=== PATIENT | female | born 1985 | race Caucasian/White ===

== ENCOUNTER 2017-01-16 07:16 | Inpatient (IN) | payer BC ==
[~2017-01-16] VITALS: Ht 170.2 cm; Wt 78.1 kg
[~2017-01-16 07:16] MED LIST: ACET-2321 PO; ALBU8.5H INH; CETI-115 PO; DIPH25CA84 PO; FLUT100D2 ORAL INH; MONT10TA22 PO
--- OUTSIDE RECORDS SUMMARY | 2017-01-21 06:08 | XMS REPORT | Continuity of Care Document ---
Author Author [facility] Organization [facility] Address Unknown Phone Unavailable Support Name Relationship Address Phone JACOBDEBOEILEEN APRN Caregiver [address] [place] [id number] Unavailable MIKE OROZCO MD Caregiver [address] [place] [address] Unavailable MAN CANALES MD Caregiver [address] [place] [address] [address] [place] [address] Unavailable EVELIA REYES Next Of Kin [address] [place] [address] Insurance Providers Guarantor Juan PabloDorothy Address [address] [place] [address] Payer [facility] Policy Number [id number] Subscriber's Name Dorothy Reyes Relationship 18 Self Group Number [id number] Chief Complaint and Reason for Visit Chief Complaint Cough,Fever,Flu,URI Reason for Visit [id number] Problems Past Problems Medical Problem Onset Date Influenza A Unknown Medications Current Home Medications Medication Dose Units Route Directions Days Qty Instructions Start Date Acetaminophen (Tylenol) 325 Mg Tablet 1-2 Tab Oral Four Times Daily 60 Tablet 12/16/16 Albuterol Sulfate (Proair Hfa 90 Mcg/Actuation) 8.5 Gm Hfa.aer.ad 2 Puff Inhalation Every 4 Hours 12/16/16 Cetirizine Hcl (Zyrtec) 10 Mg Tablet 1 Tab Oral Daily 12/16/16 Diphenhydramine Hcl (Benadryl) 25 Mg Capsule 1 Cap Oral Bedtime 30 Capsule 12/16/16 Fluticasone Propionate (Flovent Diskus) 100 Mcg Blst.w.dev 1 Puff Oral Inhalation Twice A Day 12/16/16 Montelukast Sodium (Singulair) 10 Mg Tablet 10 Mg Oral Bedtime Take 1 tablet, by mouth, one time a day (at bedtime). 12/16/16 Oseltamivir Phosphate (Tamiflu) 75 Mg Capsule 75 Mg Oral Twice A Day 5 Days 10 Capsule Take one capsules, by mouth, two times a day. Supervising physician Dr. Benjamin Hollingsworth Stenographer [facility] [address] [phone] 12/16/16 Social History No social history. Hospital Discharge Instructions No hospital discharge instructions. Plan of Care Discharge Date 12/16/16 5:19pm Disposition 01 DISCHARGED HOME, SELF-CARE Condition at Discharge Stable Instructions/Education Provided Influenza (ED) Prescriptions See Medication Section Referrals MIKE OROZCO MD Address: [facility] [address] [id number] Additional Instructions/Education Take Tamiflu as directed. Follow with Dr. Canales in the morning. Take Tylenol as needed for fevers. If any worsening symptoms go to the emergency department. Functional Status No functional status results. Allergies, Adverse Reactions, Alerts No known allergies. Immunizations Query Response on File Recorded Date/Time DTaP Vaccine History 11/201612/16/16 4:02pm Influenza Vaccine Hx 07/201612/16/16 4:02pm Vital Signs Acute Vital Signs Vital Response Date/Time Temperature (Fahrenheit) 100.6 deg F (96.8 - 99.1) 12/16/2016 4:29pm Temperature (Calculated Celsius) 38.22487 degrees C (36.0 - 37.3) 12/16/2016 4:29pm Pulse Rate (adult) 125 bpm (60 - 100) 12/16/2016 4:29pm Respiratory Rate 18 breaths/min (10 - 20) 12/16/2016 4:29pm O2 Sat by Pulse Oximetry 98 % (90 - 100) 12/16/2016 4:29pm Blood Pressure 86/57 mm Hg 12/16/2016 4:29pm Height (Inches) 66.10 inches 12/16/2016 4:29pm Weight (Kilograms) 77.900 kg 12/16/2016 4:29pm Body Mass Index (BMI) 27.0 12/16/2016 4:29pm Results Laboratory Results Test Name Result Units Flags Reference Collection Date/Time Result Date/ Time Comments Influenza Type A Antigen POSITIVE H NEGATIVE 12/16/2016 4:36pm 2016 5:15pm If clinical symptoms do not support these results, consider ordering the "Respiratory Panel, PCR". Influenza Type B Antigen NEGATIVE NEGATIVE 12/16/2016 4:36pm 2016 5:15pm Negative for Flu B protein antigen. Assay sensitivity is 90%. Procedures No known history of procedures. Encounters Encounter Location Arrival/Admit Date Discharge/Depart Date Attending Provider Departed Emergency Room [facility] 12/16/16 3:43pm 12/16/16 5: 19pm EILEEN KHAN BOROUGH COORDINATOR Recent Diagnosis
[2017-01-21] MEDS ORDERED: LIDOCAINE 1% (10mg/ml) 2ml SDV ID PRN (06:15)
[2017-01-21] MEDS ORDERED: OXYTOCIN 30 UNIT in D5LR 500 ML PRN (06:15)
[2017-01-21] MEDS ORDERED: MAG-AL + SIM LIQUID 30 ML UDC PO PRN (06:15)
[2017-01-21] MEDS ORDERED: CALCIUM CARBONATE 500mg Chewable TAB PO PRN ×2 (06:15→15:30)
[2017-01-21] MEDS ORDERED: ACETAMINOPHEN 500 MG TABLET PO PRN ×2 (06:15→15:30)
[2017-01-21] MEDS: LR 1,000 ML IV PRN ×2 (06:35→10:19)
[2017-01-21 06:41] LABS: HCT - HEMATOCRIT 38.3 % (36-46); HGB - HEMOGLOBIN 12.5 GM/DL (12-16); MEAN CORPUSCULAR HGB 28.2 UUG (26-34); MEAN CORPUSCULAR HGB CONC(MCHC 32.6 GM/DL (31-37); MEAN CORPUSCULAR VOLUME 86.5 UM3 (80-100); MEAN PLATELET VOLUME 10.5 UM3 (9.4-12.4); RED BLOOD COUNT 4.43 M/MM3 (4.00-5.20); WBC - WHITE BLOOD COUNT 8.5 T/MM3 (4.5-11.0)
[2017-01-21 06:53] VITALS: BP 106/56; PULSE 68; RESP 18; TEMP 98.2; O2SAT 97
[2017-01-21] MEDS ORDERED: D5LR 1,000 ML IV PRN (07:00)
[2017-01-21] MEDS ORDERED: AMPICILLIN 2 G in NORMAL SALINE 100 ML IV ONE (07:00)
--- NOTE | 2017-01-21 09:23 | ANESOB ---
Epidural/ Date/Time DATE: 01/21/17 TIME: 09:18 Preop Diagnosis Procedure: Labor Epidural Plan: Epidural Height: 5 ' 7.00 " Weight: 78.100 kg BMI: kg/m2 Temperature: 98 Blood Pressure: 101/67 Heart Rate: 68 Respiratory Rate: 12 SaO2: 98 NPO since: 529, eggs P:1, 40+5 Heart Rate: 130 Medications & Allergies Inpatient Medications Current Medications Medications (Trade) Dose Ordered Sig/Marci Start Time Stop Time Status Last Admin Dose Admin Lidocaine HCl 0.2 mg 0.2 mg PRN PRN 01/21/17 06:15 Lactated Ringer's (Lactated Ringers) 1,000 ml @ 0 mls/hr Q0M PRN 01/21/17 06:11 01/21/17 06:35 0 MLS/HR Acetaminophen (Tylenol Extra Strength) 1-2 TABS = 500-1,000 MG Q4H PRN 01/21/17 06:15 Al Hydroxide/Mg Hydroxide (Maalox) 30 ml Q4H PRN 01/21/17 06:15 Calcium Carbonate 1-2 TABS Q2H PRN 01/21/17 06:15 Ampicillin Sodium 1 g/Sodium Chloride 100 ml @ 200 mls/hr Q4H 01/21/17 11:00 Dextrose/Lactated Ringer's 1,000 ml @ 0 mls/hr Q0M PRN 01/21/17 07:00 01/21/17 07:01 0 MLS/HR Oxytocin/Dextrose/ Lactated Ringer's (Pitocin/D5lr) 503 ml @ 0 mls/hr Q0M PRN 01/21/17 06:15 01/21/17 07:01 0 MLS/HR Acetaminophen (Tylenol) 325 Mg Tablet, 1-2 TAB PO QID, (Reported) Last Taken: on 01/20/172099 Albuterol Sulfate (Proair HFA 90 mcg/actuation ) 8.5 Gm Hfa.aer.ad, 2 PUFF INH Q4H, (Reported) Last Taken: on 01/20/172099 Diphenhydramine HCl (Benadryl) 25 Mg Capsule, 1 CAP PO HS, (Reported) Last Taken: on 01/20/17 2330 Montelukast Sodium (Singulair) 10 Mg Tablet, 10 MG PO HS, (Reported) Take 1 tablet, by mouth, one time a day (at bedtime). Last Taken: on 01/20/17 2100 Discontinued Medications Cetirizine HCl (Zyrtec) 10 Mg Tablet, 1 TAB PO DAILY, (Reported) Fluticasone Propionate (Flovent Diskus) 100 Mcg Blst.w.dev, 1 PUFF ORAL INH BID, (Reported) Coded Allergies: No Known Allergies (Unverified , 01/21/17) Medical/Surgical History Unable to Obtain Due To: Intoxication (uses inhaler once daily, ) Anesthesia PMH: Reports: Asthma, Headaches (occasional ), Denies: *Diabetes, Anesthesia Reactions, Malignant Hyperthermia Smoking Status: Never smoker Does patient use chewing tobac: No Second Hand Exposure: No Substance Use Type: does not use Alcohol Intake: none Anesthesia Adverse Reactions: FOUND none Family Hx of Anesthesia Advers: none Patient's Surgical History: rhinoplasty Pertinent Findings Laboratory Tests 01/21/17 06:29 EKG Rhythm: Sinus Rhythm Physical Exam Respiratory: Bilat breath sounds equal, Lungs clear Cardiovascular: Rub Airway Assessment Mallampati Score: I TMD: 2 Fingerbreadths Neck Extension: Good Overall Assessment: No Airway Concerns ASA: 2 Discussion Discussed risks/options/alternatives of anesthesia. Patient consents. Nursing pain assessment noted. Attestation Statement Prior to the delivery of any anesthetic medication, I examined the patient, developed the plan, obtained the patient's consent and discussed the risk and benefits of the procedure with the patient/guardian. If the note happens to be signed after anesthesia start time, it is only due to providing efficient care of the patient and documenting at a time when the computer is available. JEANCARLOS POLANCO CRNA Jan 21, 2017 09:22
[2017-01-21] MEDS ORDERED: AMPICILLIN 1 G in NORMAL SALINE 100 ML IV SCH (11:00)
[2017-01-21] MEDS ORDERED: FAMOTIDINE 20mg IVPB 50 ML IV SCH (14:15)
[2017-01-21] MEDS ORDERED: CITRIC ACID/SODIUM CITRATE 30 ML PO ONE (14:15)
[2017-01-21] MEDS ORDERED: CEFAZOLIN 2 GM in D5W 50ml 2 GM in D5W 50 ML IV ONE ×2 (14:15)
[2017-01-21] MEDS ORDERED: MORPHINE SULFATE PF 5mg/10ml VL (DURAMORPH) ONE (14:24)
[2017-01-21] MEDS ORDERED: FENTANYL 100mcg/2ml INJECTION ONE (14:25)
[2017-01-21] MEDS ORDERED: SALINE FLUSH 10ml SYRINGE ONE (14:46)
[2017-01-21] MEDS ORDERED: OXYTOCIN 30 UNIT in D5LR 500 ML IV SCH (15:22)
[2017-01-21] MEDS ORDERED: HYDROCORTISONE 2.5% CREAM 30 GM RECTALLY PRN (15:30)
[2017-01-21] MEDS ORDERED: DiphenhydrAMINE 25 MG CAPSULE PO PRN (15:30)
[2017-01-21] MEDS ORDERED: MILK OF MAGNESIA 30 ML SUSP PO PRN (15:30)
[2017-01-21] MEDS ORDERED: NALOXONE 0.4mg/ml INJECTION IV PRN (15:45)
[2017-01-21] MEDS ORDERED: NALBUPHINE 10mg/ml INJECTION IV PRN (15:45)
[2017-01-21] MEDS ORDERED: DiphenhydrAMINE 50 MG/ML INJECTION IV PRN (15:45)
[2017-01-21] MEDS ORDERED: ONDANSETRON 4mg/2ml INJECTION IV PRN (15:45)
[2017-01-21] MEDS: IBUPROFEN 800 MG TABLET PO SCH ×2 (16:52→23:57)
[2017-01-21] MEDS: D5LR 1,000 ML IV SCH (16:54)
[2017-01-21] MEDS: HYDROCODONE/APAP 5 mg/325 mg TABLET PO PRN ×2 (17:22→23:57)
[2017-01-21] MEDS: SIMETHICONE 80 MG CHEWABLE TABLET PO CHEW SCH ×2 (18:30→23:57)
[2017-01-21 19:39] VITALS: BP 98/54; PULSE 67; RESP 16; TEMP 97.9; O2SAT 98
[2017-01-21 22:30] VITALS: RESP 16; O2SAT 95
[2017-01-21 23:34] VITALS: BP 94/53; PULSE 63; RESP 16; TEMP 97.9; O2SAT 98
--- NOTE | 2017-01-21 23:50 | NUR ---
status patient stood at bedside, felipa care performed, bed changed. patient denied dizziness or lightheadedness. patient reported pain with movement. will administer PO pain medication. fundus firm, lochia scant. patient denies other needs or complaints. will continue to monitor and educate.
[2017-01-22] VITALS (8 sets, daily range): BP systolic 98–105; BP diastolic 51–59; PULSE 63–92; RESP 16–18; TEMP 97.8–98.2; O2SAT 96–98
--- NOTE | 2017-01-22 00:43 | NUR ---
Chart Check 24 hour chart check completed
[2017-01-22] MEDS: D5LR 1,000 ML IV SCH ×3 (01:22→21:22)
--- NOTE | 2017-01-22 02:28 | NUR ---
shift summary VSS, fundus firm, lochia scant. patient stood at bedside for pericare and bed change. D5LR continues to run at 100ml/hr. patient tolerating PO fluids and clear liquid diet without n/v. patient performing cares for infant and well. no further changes in status. will continue to monitor and educate.
[2017-01-22] MEDS: HYDROCODONE/APAP 5 mg/325 mg TABLET PO PRN ×5 (04:07→22:22)
[2017-01-22 06:00] LABS: HCT - HEMATOCRIT 33.4 % (36-46); HGB - HEMOGLOBIN 11.1 GM/DL (12-16); MEAN CORPUSCULAR HGB 28.8 UUG (26-34); MEAN CORPUSCULAR HGB CONC(MCHC 33.2 GM/DL (31-37); MEAN CORPUSCULAR VOLUME 86.8 UM3 (80-100); MEAN PLATELET VOLUME 10.4 UM3 (9.4-12.4); RED BLOOD COUNT 3.85 M/MM3 (4.00-5.20); WBC - WHITE BLOOD COUNT 12.6 T/MM3 (4.5-11.0)
--- NOTE | 2017-01-22 07:24 | OPNOTEF ---
DATE OF PROCEDURE 01/21/2017 Ms. Almeida was brought in for induction of labor today for postdates . In the office and on examination here I felt the baby was in vertex presentation although it did feel like it might be face presentation. I did make sure that I confirmed our suture lines as the induction was going along. heart tones remained reactive and reassuring. The patient dilated to about 2.5 cm and then the baby's presentation felt quite different. Bedside sonogram by me confirmed the baby was in breech presentation. I don't know if he had been this way all along and I simply missed it or if he turned during the course of labor after AROM. However, I talked with Ms. Almeida and her , Joe, about this and recommended that we moved toward . We discussed the reasons for this, the potential risks of versus vaginal delivery. She agreed. PREOPERATIVE DIAGNOSIS Term , labor, breech presentation. POSTOPERATIVE DIAGNOSIS Term , labor, breech presentation. PROCEDURE Primary low transverse section. SURGEON Arlene Canales MD COUPLES THERAPIST Bridgett Ramos MD ANESTHESIA Combo spinal-epidural - Lincoln Meza, CIRCUS TRAINER EBL 900 ml DESCRIPTION OF PROCEDURE Ms. Almeida was brought to the OR and given regional analgesia to good effect. She was then placed on the OR table in a comfortable supine position with left lateral displacement and a Astudillo catheter was placed to dependent drain. The abdomen was prepped and draped in the usual sterile fashion. A Pfannenstiel skin incision was made with a sharp knife. This was carried down to fascia. Fascia was incised transversely. Fascia was then bluntly and sharply dissected free of the rectus muscles while tenting it up. The peritoneum was then tented up, sharply entered, then extended vertically. The bladder blade was inserted. The vesicouterine fold of peritoneum and bladder were noted to be well below the area of operation. A low transverse uterine incision was made with a sharp knife. This was extended bluntly with fingertips. There was clear amniotic fluid. Upon entry of the sac, baby was delivered in the jaz breech presentation without difficulty. Baby was then bulb suctioned on the abdomen. Cord was doubly clamped and cut and the baby was given to Dr. Huerta and his team for care. This was a liveborn male with Apgars of 8/9/9, weighing 8 pounds, 5.9 ounces. The placenta was then expressed intact. It had a normal configuration and a normal-appearing three-vessel cord. The uterine cavity was swept clear of membranes and the uterus exteriorized. The myometrial incision was then reapproximated with a running locking O Monocryl. We inspected carefully for hemostasis. This was under good control. Uterus, tubes and ovaries were noted to be grossly normal. We removed the blood from the abdominal cavity, then returned the uterus to the abdomen. We reinspected for hemostasis at our incision. It was hemostatic. We reapproximated peritoneum with a running nonlocking 2-0 Vicryl. We reapproximated fascia with a running nonlocking 0 Vicryl. Skin edges were then reapproximated with a subcuticular style 3-0 undyed Vicryl. The wound was dressed with Steri-Strips and sterile dressing. Counts correct were correct postoperatively x 2. The urine remained clear and free flowing throughout the procedure. Ms. Almeida was then transferred to recovery in stable condition. SANTANA
[2017-01-22] MEDS ORDERED: RHO(D) IMMUNE GLOBULIN 300mcg/2ml INJECTION IV ONE (07:45)
--- NOTE | 2017-01-22 08:09 | PNPDOC ---
Progress Note PPD1 Rubella: Immune GBS: Positive Blood Type:O neg Subjective 01/22/17 Lochia: Moderate Pain: Controlled Voiding: Astudillo still in Place Nausea and Vomiting: No Nausea/Vomiting Objective VSS AF Vital Signs Date Time Temp Pulse Resp B/P Pulse Ox O2 Delivery O2 Flow Rate FiO2 01/22/17 07:44 98.2 64 16 98/56 96 Room Air General: Alert and Oriented Respiratory: Non-labored Abdomen: Fundus Firm Incision: Clean/Dry/Intact Extremities: Non-tender Edema: None Laboratory Item Value Date Time White Blood Count 12.6 T/MM3 H # 01/22/17 0552 Hemoglobin 11.1 GM/DL L # 01/22/1752 Platelet Count 207 T/MM3 01/22/17 0552 Assessment Primary C/S Plan Routine Care JULIAN MCDONALD APRN Jan 22, 2017 08:09
[2017-01-22] MEDS: IBUPROFEN 800 MG TABLET PO SCH ×2 (08:10→16:08)
[2017-01-22] MEDS: SIMETHICONE 80 MG CHEWABLE TABLET PO CHEW SCH ×4 (10:01→22:22)
[2017-01-22] MEDS: DOCUSATE CALCIUM 240 MG CAPSULE PO SCH (10:01)
--- NOTE | 2017-01-22 14:19 | NUR ---
Shift Summary: VSS, mother's bleeding is minimum. She has been up to the bathroom with assistance and performed own felipa-care. Astudillo catheter was removed at 1400. Dressing is dry and intact. Pain is controlled with oral pain meds. She is eating a regular diet and no nausea. is going well. Mother/ bonding is going well.
--- NOTE | 2017-01-22 15:22 | NUR ---
Rh FACTOR CONSULT: Mother Blood Type = O Negative Child Blood Type = O Positive Hgb / Adult Ratio = 0.000 Will give Rho D Immunoglobulin 300mcg IV x 1 dose. Thank you, Hanny Simmons RPh
[2017-01-23] VITALS: BP 108/58; PULSE 69; RESP 18; TEMP 98
[2017-01-23] MEDS: IBUPROFEN 800 MG TABLET PO SCH ×2 (00:37→15:38)
--- NOTE | 2017-01-23 02:07 | NUR ---
Chart Check 24 hour chart check completed
--- NOTE | 2017-01-23 02:11 | NUR ---
SHIFT SUMMARY: VSS, pt's pain controlled with PO Motrin and [place] 5. Fundus firm at 2 below umbilicus, scant lochia noted. Incision dressing dry and intact. Abdm binder in use for support and pt comfort. Pt up to BRP, RN discusses and encourages pt to increase ambulation. RN discusses showering and removing dressing, pt has not showered. General diet tolerated. well, no assistance needed from RN. Bonding and caring for baby appropriately. in room and supportive. Baby in nursery to allow parents to sleep
[2017-01-23 03:24] VITALS: BP 103/67; PULSE 77; RESP 16; TEMP 97.8
[2017-01-23] MEDS: HYDROCODONE/APAP 5 mg/325 mg TABLET PO PRN ×3 (03:28→12:40)
--- NOTE | 2017-01-23 08:16 | PNPDOC ---
Progress Note PPD2 Rubella: Immune GBS: Positive Blood Type:O neg Subjective 01/23/17 Lochia: Minimal Pain: Controlled Voiding: Voiding Nausea and Vomiting: No Nausea/Vomiting Objective Vital Signs Date Time Temp Pulse Resp B/P Pulse Ox O2 Delivery O2 Flow Rate FiO2 01/23/17 03:24 97.8 77 16 103/67 Room Air 01/22/17 14:57 96 Urine Output: Good General: Alert and Oriented Abdomen: Fundus Firm, Non-tender Incision: Clean/Dry/Intact Extremities: Non-tender Edema: None Assessment SP, Primary C/S Plan Routine Care Consider dismissal later today or in MAN Peña MD Jan 23, 2017 08:16
[2017-01-23] MEDS ORDERED: HYDR-4246 PO (08:17)
[2017-01-23] MEDS ORDERED: DOCU240C40 PO (08:17)
[2017-01-23] MEDS ORDERED: IBUP-1547 PO (08:17)
[2017-01-23] MEDS: DOCUSATE CALCIUM 240 MG CAPSULE PO SCH (08:21)
[2017-01-23] MEDS: SIMETHICONE 80 MG CHEWABLE TABLET PO CHEW SCH ×2 (08:21→12:40)
[2017-01-23 10:02] VITALS: BP 103/62; PULSE 78; RESP 16; TEMP 98; O2SAT 98
[2017-01-23 15:35] VITALS: BP 111/68; PULSE 74; RESP 14; TEMP 97.9
--- NOTE | 2017-01-23 17:45 | NUR ---
DISCHARGE: VSS, pain controlled with PO Motrin and [place] 5. Fundus firm at two below umbilicus, scant lochia. 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 Pt up ad kushal, tolerating general diet, and performing own personal cares. Pt denies assistance with . Bonding and caring for baby appropriately. Joe in room and supportive. RN discussed and provided Rxs earlier in the shift, Joe getting them filled. Dr Canales rounds on pt and orders pt to DC to home. RN discusses and provides DC instructions and f/u, pt verbalizes understanding. Pt waiting for to return.
--- NOTE | 2017-01-23 18:10 | NUR ---
ESCORT TO CAR: RN and Lela Diallo assist pt with placement of abdm binder. RN escorts pt and family to private vehicle. Pt DC'd to home.
== END 2017-01-23 18:10 | disposition home or self-care (01) | DRG 766 ==
LOC: MC 01-21 06:02
PROVIDERS: ADMIT Obstetrics & Gynecology; ATTEND Obstetrics & Gynecology
PROC: 10907ZC Drainage of Amniotic Fluid, Therapeutic from Products of Conception, Via Natural or Artificial Opening (ICD-10-PCS; 2017-01-21)
PROC: 3E033VJ Introduction of Other Hormone into Peripheral Vein, Percutaneous Approach (ICD-10-PCS; 2017-01-21)
PROC: 10D00Z1 Extraction of Products of Conception, Low, Open Approach (ICD-10-PCS; principal; 2017-01-21 14:50)
DX: O48.0 Post-term pregnancy (principal); O32.0XX0 Maternal care for unstable lie, not applicable or unspecified; O32.1XX0 Maternal care for breech presentation, not applicable or unspecified; O99.824 Streptococcus B carrier state complicating childbirth; O99.52 Diseases of the respiratory system complicating childbirth; J45.909 Unspecified asthma, uncomplicated; Z3A.40 40 weeks gestation of pregnancy; Z37.0 Single live birth
CPT/HCPCS: 36415; 85027; 85460; 86850; 86870; 86900; 86901